=== PATIENT | male | born 1930 | race Caucasian/White ===

== ENCOUNTER 2017-06-25 11:18 | Emergency (ER) | payer OTHER ==
[~2017-06-25] VITALS: Ht 180.3 cm; Wt 73.1 kg
[~2017-06-25 11:18] MED LIST: ASPIR 8181 M1 PO; HYDROCODON-ACE1 EAC7 PO; LISINOPRIL-HCT1 EACH PO; LITE COAT ASPI325 M1 PO; LOFIBRA54 MG PO; MULTIPLE VITAM1 EACH PO; NORCO 5/3251 TABLET PO; NORVASC10 MG PO; PLAVIX75 MG PO; PRAVACHOL20 MG PO; PRAVACHOL40 MG PO; TIZANIDINE HCL4 MG PO; VITAMIN B-6100 MG PO; VITAMIN B12-FO1 EACH PO; VITAMIN C1000 MG PO; VITAMIN D32000 UNIT PO; ZINC CHELATED50 MG PO
[2017-06-25] MEDS ORDERED: ADULT GLYCERIN1 EACH PR (14:59)
[2017-06-25 15:30] VITALS: BP 155/85
== END 2017-06-25 15:30 | disposition home or self-care (01) ==
LOC: EME 11:18
DX: K59.00 Constipation, unspecified (principal); S39.012A Strain of muscle, fascia and tendon of lower back, initial encounter; E78.5 Hyperlipidemia, unspecified; Z87.891 Personal history of nicotine dependence; Z86.73 Personal history of transient ischemic attack (TIA), and cerebral infarction without residual deficits
CPT/HCPCS: 74018; 99281; 99285